=== PATIENT | male | born 1955 | race Two or more races ===

== ENCOUNTER → 2016-09-30 | Outpatient (CLI) | payer OTHER ==
[~2016-09-30] MED LIST: ALPR0.5T10 PO; FURO40TA6 PO; GLIP5TAB10 PO; LISI40TA PO; METF10002 PO; NAPR500T8 PO; OMEP20TA62 PO; POTA20PI5 PO; SIMV20TA PO; SITA100T PO
== END | disposition home or self-care (01) ==
LOC: CFH 06:37
DX: K74.60 Unspecified cirrhosis of liver (principal); R16.1 Splenomegaly, not elsewhere classified
CPT/HCPCS: 76700

== ENCOUNTER 2017-02-11 12:00 | Day surgery (SDC) | payer OTHER ==
[~2017-02-11] VITALS: Ht 175.3 cm; Wt 105.4 kg
[~2017-02-11 12:00] MED LIST changes: +DILT120C64 PO; +FERR324T5 PO; +HYDR25TA11 PO; +INSU100C SQ-INSULIN; +INSU100V8 SQ; +LEVO50TA5 PO; +SPIR50TA2 PO
[2017-02-11 12:36] VITALS: BP 134/83
[2017-02-11] MEDS ORDERED: LACTATED RINGERS 1,000 ML IV SCH (12:39)
[2017-02-11] MEDS ORDERED: LIDOCAINE 1%, 2ML ONE (12:44)
[2017-02-11 12:57] LABS: HEMATOCRIT 26.7 % (39.2-51.8); HEMOGLOBIN 9.1 g/dL (13.7-18.0); WHITE BLOOD COUNT 2.5 x10^3/uL (3.4-10)
[2017-02-11] MEDS ORDERED: LIDOCAINE 1%, 2ML SQ PRN (13:00)
[2017-02-11] MEDS ORDERED: MIDAZOLAM 1 MG/ML, 2ML ONE (14:33)
[2017-02-11] MEDS ORDERED: PROPOFOL 10 MG/ML, 20ML ONE (14:45)
[2017-02-11] MEDS ORDERED: ONDANSETRON 2MG/ML, 2ML ONE (14:45)
[2017-02-11] MEDS ORDERED: HYDROmorphone 1 MG/ML, 1ML IV PRN (15:30)
[2017-02-11] MEDS ORDERED: LABETALOL 5MG/ML, 20ML IV PRN (15:30)
[2017-02-11] MEDS ORDERED: FENTANYL PF 100 MCG/2ML IV PRN (15:30)
[2017-02-11] MEDS ORDERED: hydrALAzine 20 MG/ML, 1ML IV PRN (15:30)
[2017-02-11] MEDS ORDERED: ONDANSETRON 2MG/ML, 2ML IVPush PRN (15:30)
== END 2017-02-11 16:45 ==
LOC: OUT 12:00
PROVIDERS: ATTEND Internal Medicine
DX: K92.2 Gastrointestinal hemorrhage, unspecified (principal); K31.9 Disease of stomach and duodenum, unspecified; K74.60 Unspecified cirrhosis of liver; I10 Essential (primary) hypertension; E11.9 Type 2 diabetes mellitus without complications
CPT/HCPCS: 36415; 43239; 43255; 82962; 85025; J2250; J2405; J2704; J3490; J7120

== ENCOUNTER 2017-04-29 05:40 | Outpatient (CLI) | payer OTHER ==
[~2017-04-29] VITALS: Ht 175.3 cm; Wt 108.1 kg
[2017-04-29 06:14] VITALS: BP 121/73
[2017-04-29] MEDS ORDERED: LACTATED RINGERS 1,000 ML IV SCH (06:35)
[2017-04-29 07:00] LABS: MEAN CORPUSCULAR HEMOGLOBIN 26.2 pg (27.5-34.5); MEAN CORPUSCULAR HGB CONC 32.2 g/dL (33.2-36.2); MEAN CORPUSCULAR VOLUME 81.2 fL (81-97); MEAN PLATELET VOLUME 8.2 fL (7.4-10.4); PLATELET COUNT 116 x10^3/uL (130-400); RED BLOOD COUNT 3.28 x10^6/uL (4.38-5.82); RED CELL DISTRIBUTION WIDTH 16.7 % (9.4-14.8)
[2017-04-29] MEDS ORDERED: LIDOCAINE 1%, 2ML SQ PRN (07:00)
[2017-04-29 07:13] LABS: ALBUMIN 2.9 g/dL (3.4-5.0); ANION GAP 8 mmol/L (5-15); CALCIUM 7.9 mg/dL (8.5-10.1); CHLORIDE 108 mmol/L (98-107)
[2017-04-29 07:16] LABS: ALANINE AMINOTRANSFERASE 27 U/L (12-78); ALKALINE PHOSPHATASE 198 U/L (45-117); BILIRUBIN,TOTAL 0.5 mg/dL (0.2-1.0); CREATININE 1.14 mg/dL (0.7-1.3)
[2017-04-29] MEDS ORDERED: INSULIN SINGLE DOSE, ER SQ-INSULIN ONE (07:16)
[2017-04-29] MEDS ORDERED: INSULIN REGULAR 100 UNITS/ML, 3ML VIAL SQ-INSULIN ONE (07:30)
[2017-04-29 08:18] LABS: BASOPHILS # (AUTO) 0.03 x10^3/uL (0-0.1); BASOPHILS % (AUTO) 1 % (0-1); EOSINOPHILS # (AUTO) 0.13 x10^3/uL (0-0.4); EOSINOPHILS % (AUTO) 5 % (1-7); LYMPHOCYTES # (AUTO) 0.75 x10^3/uL (1-3.4); LYMPHOCYTES % (AUTO) 28 % (22-44); MD MORPH REVIEW ONLY; MONOCYTES # (AUTO) 0.38 x10^3/uL (0.2-0.8); MONOCYTES % (AUTO) 14 % (2-9); NEUTROPHILS % (AUTO) 52 % (42-75)
[2017-04-29 08:19] LABS: ANISOCYTOSIS 1+; HYPOCHROMIA 1+
[2017-04-29 08:20] LABS: <PLATELET ESTIMATE> DECREASED; <PLT MORPHOLOGY> NORMAL PLT MORPH; OVALOCYTES 1+; POLYCHROMASIA 1+
== END 2017-04-29 17:00 | disposition home or self-care (01) ==
LOC: OUT 05:40 → EDSTATUS 07:30 → OUT 09:00
PROVIDERS: ATTEND Internal Medicine
DX: Z01.812 Encounter for preprocedural laboratory examination (principal); K31.819 Angiodysplasia of stomach and duodenum without bleeding; E11.69 Type 2 diabetes mellitus with other specified complication; K74.60 Unspecified cirrhosis of liver
CPT/HCPCS: 36415; 80053; 82962; 85025; J7120

== ENCOUNTER 2017-06-03 05:40 | Day surgery (SDC) | payer OTHER ==
[~2017-06-03] VITALS: Ht 175.3 cm; Wt 106.6 kg
[2017-06-03] MEDS ORDERED: LIDOCAINE-MPF 1%, 2ML ONE (06:54)
[2017-06-03] MEDS ORDERED: PROPOFOL 10 MG/ML, 20ML ONE (07:04)
[2017-06-03] MEDS ORDERED: LIDOCAINE-MPF 2% ,5ML ONE (07:05)
[2017-06-03] MEDS ORDERED: ROCURONIUM 10 MG/ML,10ML ONE (07:08)
[2017-06-03 07:16] VITALS: BP 135/81
[2017-06-03] MEDS ORDERED: LACTATED RINGERS 1,000 ML IV SCH (07:24)
[2017-06-03] MEDS ORDERED: HYDROcodone/APAP 7.5-325MG/15ML UDC PO PRN (07:30)
[2017-06-03] MEDS ORDERED: LIDOCAINE 1%, 2ML SQ PRN (07:30)
[2017-06-03] MEDS ORDERED: ONDANSETRON 2MG/ML, 2ML IVPush PRN (07:30)
[2017-06-03] MEDS ORDERED: FENTANYL PF 100 MCG/2ML IV PRN (07:30)
[2017-06-03] MEDS ORDERED: OXYcodone 5 MG/5 ML ORAL.SOL UDC PO PRN (07:30)
[2017-06-03] MEDS ORDERED: HYDR-882 PO (07:32)
[2017-06-03] MEDS ORDERED: METF500T4 PO (07:32)
[2017-06-03] MEDS ORDERED: SITA25TA PO (07:32)
== END 2017-06-03 09:55 ==
LOC: OUT 05:40
PROVIDERS: ATTEND Internal Medicine
DX: K31.819 Angiodysplasia of stomach and duodenum without bleeding (principal); D50.0 Iron deficiency anemia secondary to blood loss (chronic); E11.9 Type 2 diabetes mellitus without complications; E78.5 Hyperlipidemia, unspecified; I25.10 Atherosclerotic heart disease of native coronary artery without angina pectoris; Z79.899 Other long term (current) drug therapy
CPT/HCPCS: 43255; 82962; 93005; J2704; J3490

== ENCOUNTER 2017-07-18 03:27 | Emergency (ER) | payer OTHER ==
[~2017-07-18] VITALS: Ht 175.3 cm; Wt 118.2 kg
[~2017-07-18 03:27] MED LIST changes: +CITA20TA9 PO; +HYDR-882 PO; +METF500T4 PO; +SITA25TA PO
[2017-07-18] MEDS ORDERED: LORazepam 1MG TABLET PO ONE (04:00)
[2017-07-18] MEDS ORDERED: HALOPERIDOL 5 MG TABLET PO ONE (04:00)
[2017-07-18] MEDS ORDERED: DIPHENHYDRAMINE 25 MG CAPSULE PO ONE (04:00)
[2017-07-18 04:19] LABS: BASOPHILS # (AUTO) 0.02 x10^3/uL (0-0.1); BASOPHILS % (AUTO) 1 % (0-1); EOSINOPHILS % (AUTO) 3 % (1-7); LYMPHOCYTES # (AUTO) 0.56 x10^3/uL (1-3.4); LYMPHOCYTES % (AUTO) 15 % (22-44); MD NO; MEAN CORPUSCULAR HGB CONC 32.8 g/dL (33.2-36.2); MEAN CORPUSCULAR VOLUME 76.2 fL (81-97); MEAN PLATELET VOLUME 8.4 fL (7.4-10.4); MONOCYTES # (AUTO) 0.36 x10^3/uL (0.2-0.8); MONOCYTES % (AUTO) 10 % (2-9); NEUTROPHILS # (AUTO) 2.62 x10^3/uL (1.8-6.8); NEUTROPHILS % (AUTO) 71 % (42-75); PLATELET COUNT 111 x10^3/uL (130-400); RED BLOOD COUNT 3.36 x10^6/uL (4.38-5.82); RED CELL DISTRIBUTION WIDTH 17.7 % (9.4-14.8)
[2017-07-18] MEDS ORDERED: DIPHENHYDRAMINE 25 MG CAPSULE ONE (04:22)
[2017-07-18] MEDS ORDERED: LORazepam 1MG TABLET ONE (04:22)
[2017-07-18] MEDS ORDERED: HALOPERIDOL 5 MG TABLET ONE (04:23)
[2017-07-18 04:44] VITALS: BP 132/84
== END 2017-07-18 04:56 | disposition home or self-care (01) ==
LOC: ED 04:10
DX: F41.1 Generalized anxiety disorder (principal); R79.89 Other specified abnormal findings of blood chemistry
CPT/HCPCS: 36415; 85025; 99284; Q0163

== ENCOUNTER 2017-07-29 06:47 | Day surgery (SDC) | payer OTHER ==
[~2017-07-29] VITALS: Ht 175.3 cm; Wt 110.3 kg
[2017-07-29 07:18] VITALS: BP 121/71
[2017-07-29] MEDS ORDERED: LACTATED RINGERS 1,000 ML IV SCH (07:20)
[2017-07-29] MEDS ORDERED: PROPOFOL 10 MG/ML, 20ML ONE (09:45)
[2017-07-29] MEDS ORDERED: FENTANYL PF 100 MCG/2ML IV PRN (10:00)
[2017-07-29] MEDS ORDERED: hydrALAzine 20 MG/ML, 1ML IV PRN (10:00)
[2017-07-29] MEDS ORDERED: HYDROcodone/APAP 7.5-325MG/15ML UDC PO PRN (10:00)
[2017-07-29] MEDS ORDERED: OXYcodone 5 MG/5 ML ORAL.SOL UDC PO PRN (10:00)
[2017-07-29] MEDS ORDERED: ONDANSETRON 2MG/ML, 2ML IVPush PRN (10:00)
[2017-07-29] MEDS ORDERED: ACETAMINOPHEN 325 MG TABLET PO PRN (10:00)
[2017-07-29] MEDS ORDERED: PROMETHAZINE 25 MG/ML, 1ML IV PRN (10:00)
[2017-07-29] MEDS ORDERED: LABETALOL 5MG/ML, 20ML IV PRN (10:00)
== END 2017-07-29 11:50 ==
LOC: OUT 06:47
PROVIDERS: ATTEND Internal Medicine
DX: D62 Acute posthemorrhagic anemia (principal); K31.811 Angiodysplasia of stomach and duodenum with bleeding; I25.10 Atherosclerotic heart disease of native coronary artery without angina pectoris; E78.5 Hyperlipidemia, unspecified; I10 Essential (primary) hypertension
CPT/HCPCS: 43239; 82962; 88305; J2704; J7120